=== PATIENT | female | born 1990 | race Caucasian/White ===

== ENCOUNTER 2019-04-08 07:48 | Emergency (ER) | payer OTHER ==
[~2019-04-08] VITALS: Ht 175.3 cm; Wt 86.8 kg
[2019-04-08] MEDS ORDERED: ONDANSETRON 4 MG ORAL DISINTEGRATING TAB (Q0162 PER 1MG) PO ONE (09:15)
[2019-04-08] MEDS ORDERED: ACETAMINOPHEN TAB 650MG DOSE (2X325MG) PO ONE (09:15)
[2019-04-08] MEDS ORDERED: IBUPROFEN 600 MG TAB PO ONE (09:15)
--- NOTE | 2019-04-08 09:35 | REP ---
CT of the brain without IV contrast: There are no comparisons. There is no subdural or epidural hematoma. There is no intraparenchymal or subarachnoid hemorrhage. There is no edema, mass effect or midline shift. The cortical stripe is unremarkable. The ventricles are normal size. The visualized paranasal sinuses and mastoid air cells are clear. Impression: Negative CT study of the brain. Electronically Signed by Micah Mirza MD 04/08/2019 09:27 A
[2019-04-08 10:11] VITALS: BP 127/78
[2019-04-08] MEDS ORDERED: ONDA4TAB6 PO (10:13)
== END 2019-04-08 10:21 | disposition home or self-care (01) ==
LOC: M ED 07:48
DX: S09.90XA Unspecified injury of head, initial encounter (principal); Z91.81 History of falling; Y92.9 Unspecified place or not applicable; Y93.9 Activity, unspecified
CPT/HCPCS: 70450; 99283; Q0162